=== PATIENT | female | born 1960 | race African-American/Black ===

== ENCOUNTER → 2019-04-22 | Day surgery (SDC) | payer BC ==
[~2019-04-22] MED LIST: ALFALFA PO; AMLODIPINE BESYL5 MG PO; B COMPLEX PO; BEET ROOT PO; CHROMIUM PO; CINNAMON PO; COLLAGEN PO; CURCUMIN PO; FLAX SEED OIL1000 MG PO; GARLIC200 MG PO; GINGER PO; HAIR VITAMIN1 EACH PO; HYOSCYAMINE 0.125 MG TAB ONE; LORAZEPAM2 MG/1 M1 PO; MAGNESIUM CITRATE PO; MAGNESIUM/CALCIUM PO; MELATONIN PO; MIDAZOLAM HCL 2 MG/2 ML VIAL ONE; NITRIC OXIDE PO; OLIVE LEAF EXT250 MG PEG; POTASSIUM99 M1 PO; PROBIOTIC PO; SELENIUM200 MC2 PO; SLEEP AID PO; UBIQUINOL100 MG PO; VITAMIN B-2100 MG PO; VITAMIN B-6100 MG PO; VITAMIN C1000 MG PO; VITAMIN D35000 UNI2 PO; VITAMIN E400 UNI1 PO; WHEAT GERM OIL PO; [UNRECOGNIZED DRUG - OTHER] PO; [UNRECOGNIZED DRUG - OTHER] PO
--- NOTE | 2019-04-22 19:06 | Operative Report ---
DATE OF PROCEDURE: 04/22/2019 SURGEON: Quang Quinones MD PROCEDURE: Colonoscopy. INDICATIONS FOR COLONOSCOPY: Colorectal cancer screening, father with colon cancer. MEDICATIONS: The patient was done under MAC, please see anesthesiologist's note. PROCEDURE IN DETAIL: With the patient in the left lateral decubitus position, a flexible fiberoptic Olympus colonoscope was inserted into the rectum with ease and advanced all the way to the cecum. It was then withdrawn slowly. Mucosa overlying the cecum, ascending colon, and transverse colon appeared to be within normal limits. A single diverticulum was noted in the proximal descending colon. The rest of the descending, sigmoid, and rectum appeared to be within normal limits. The scope was then retroflexed into the distal rectum and small internal hemorrhoids were noted, none of which was actively bleeding. The scope was then straightened out, it was subsequently withdrawn, and the patient tolerated the procedure well. IMPRESSION: 1. Single diverticulum, descending colon. 2. Internal hemorrhoids, none actively bleeding. PLAN: Initiate high-fiber, low-fat diet. Initiate high-fiber supplement. The patient might benefit from a followup colonoscopy in 3 years considering her strong family history of colon cancer. Quang Quinones MD [facility] [place] /[id number] cc: Andres De Paz MD
== END | disposition home or self-care (01) ==
LOC: OR 09:36
PROVIDERS: ATTEND Internal Medicine Gastroenterology
DX: R19.7 Diarrhea, unspecified (principal); K57.30 Diverticulosis of large intestine without perforation or abscess without bleeding; K64.8 Other hemorrhoids; R11.10 Vomiting, unspecified; I10 Essential (primary) hypertension; F41.9 Anxiety disorder, unspecified; Z01.810 Encounter for preprocedural cardiovascular examination; Z80.0 Family history of malignant neoplasm of digestive organs
CPT/HCPCS: 45378; 93005; J2250